=== PATIENT | female | born 1985 | race Caucasian/White ===

== ENCOUNTER 2018-07-06 17:09 | Observation (INO) ==
[2018-07-06] MEDS ORDERED: VANCOMYCIN HCL 1 GM VIAL 1 G in D5W 250 ML IV 250 ML IV ONE (17:57)
[2018-07-06] MEDS ORDERED: TORADOL 60 MG VIAL IVP ONE (17:57)
--- NOTE | 2018-07-06 17:59 | DR.BITE ---
HPI Time Seen Time Seen by Provider: 07/06/18 17:55 PCP Primary Care Physician: ESME Complaint/Symptoms Chief Complaint:: PT. C/O ABSCESS TO LEFT LEG. PT. STATES ON ANKUR MORNING HER LEFT LEG WAS HURTING HER AND THEN IT STARTED BECOMING REDDENED AND PAINFUL. PT. STATES HER LEFT GROIN AND LEFT THIGH IS PAINFUL. Source History Provided: Patient Mode of Arrival Mode of Arrival: Wheelchair Timing Onset of Chief Complaint: 07/03/18 PMH PMH Past Medical History: Yes Past Medical History: Kidney Stones Past Medical History Comment: PANCREATITIS Past Surgical History: Yes Surgical History: and Cholecystectomy Family History History of Family Medical Conditions: Yes Family Medical History: [place] Social History Does patient currently use any type of tobacco product: Yes Have you used tobacco products in the last 12 months: Yes Type of Tobacco Use: Cigarettes Does any household member use tobacco: Yes Alcohol Use: Occasionally Do you use any recreational Drugs:: No Lives With: Alone Lives Where: Home infectious screening In the last 2 months have you had wt loss of >10#?: NO Have you had fever, night sweats or hemotysis?: No Have you traveled outside the country in the last 6 months?: No Isolation: Standard PE Vital Signs Vital Signs: Temp Pulse Resp BP Pulse Ox 07/06/18 17:16 98.1 F 106 H 20 114/79 100 12/25/17 05:58 113/67 ROR Labs Reviewed Result Diagrams: 07/06/18 17:54 07/06/18 17:54 Laboratory: 07/06/18 17:59 Leg - Left Gram Stain - Final WBC 5.6 X10^3/uL (3.6-10.0) 07/06/18 17:54 RBC 4.40 X10^6/uL (3.5-5.4) 07/06/18 17:54 Hgb 12.6 g/dL (12.0-16.0) 07/06/18 17:54 Hct 36.4 % (36.0-47.0) 07/06/18 17:54 MCV 82.9 fL (80.0-100.0) 07/06/18 17:54 MCH 28.6 pg (27.0-34.0) 07/06/18 17:54 MCHC 34.5 g/dL (33.0-35.0) 07/06/18 17:54 RDW 12.5 % (11.6-16.5) 07/06/18 17:54 Plt Count 231 X10^3/uL (150.0-450.0) 07/06/18 17:54 MPV 8.6 fL (7.4-11.0) 07/06/18 17:54 Neut % (Auto) 64.5 % (42.0-75.0) 07/06/18 17:54 Lymph % (Auto) 23.6 % (21.0-51.0) 07/06/18 17:54 [place] % (Auto) 7.6 % (0.0-13.0) 07/06/18 17:54 Eos % (Auto) 3.6 % (0.9-2.9) H 07/06/18 17:54 Baso % (Auto) 0.7 % (0.2-1.0) 07/06/18 17:54 Neut # (Auto) 3.6 x10^3/uL (2.2-4.8) 07/06/18 17:54 Lymph # (Auto) 1.3 X10^3/uL (1.3-2.9) 07/06/18 17:54 [place] # (Auto) 0.4 x10^3/uL (0.3-0.8) 07/06/18 17:54 Eos # (Auto) 0.2 x10^3/uL (0.0-0.2) 07/06/18 17:54 Baso # (Auto) 0.0 X10^3/uL (0.0-0.1) 07/06/18 17:54 Absolute Nucleated RBC 0.0 /100WBC 07/06/18 17:54 Sodium 136 mmol/L (136-145) 07/06/18 17:54 Corrected Sodium TNP 07/06/18 17:54 Potassium 3.9 mmol/L (3.5-5.1) 07/06/18 17:54 Chloride 100 mmol/L (98-107) 07/06/18 17:54 Carbon Dioxide 29.7 mmol/L (21-32) 07/06/18 17:54 BUN 7 mg/dL (7-18) 12/28/18 17:54 Creatinine 0.82 mg/dL (0.55-1.02) 07/06/18 17:54 Est GFR (MDRD) Af Amer > 60 (>60) 07/06/18 17:54 Est GFR (MDRD) Non-Af > 60 (>60) 07/06/18 17:54 Glucose 108 mg/dL (65-99) H 07/06/18 17:54 Lactic Acid 1.2 mmol/L (0.4-2.0) 07/06/18 17:45 Calcium 9.2 mg/dL (8.5-10.1) 07/06/18 17:54 Corrected Calcium TNP 07/06/18 17:54 Total Bilirubin 0.20 mg/dL (0.2-1.0) 07/06/18 17:54 AST 14 Units/L (15-37) L 07/06/18 17:54 ALT 25 Units/L (12-78) 07/06/18 17:54 Alkaline Phosphatase 55 Units/L (46-116) 07/06/18 17:54 C-Reactive Protein 104.70 mg/L (0-3.0) H 07/06/18 17:45 Total Protein 7.8 g/dL (6.4-8.2) 07/06/18 17:54 Albumin 3.4 g/dL (3.4-5.0) 07/06/18 17:54 Globulin 4.4 g/dL (2.5-4.5) 07/06/18 17:54 Albumin/Globulin Ratio 0.8 Ratio (1.1-2.1) L 07/06/18 17:54
[2018-07-06] MEDS ORDERED: TORADOL 30 MG VIAL ONE (18:10)
[2018-07-06] MEDS ORDERED: VANCOMYCIN HCL 1 GM VIAL ONE (18:10)
[2018-07-06 18:11] LABS: BASOPHILS % (AUTO) 0.7 % (0.2-1.0); EOSINOPHILS # (AUTO) 0.2 x10^3/uL (0.0-0.2); EOSINOPHILS % (AUTO) 3.6 % (0.9-2.9); HEMATOCRIT 36.4 % (36.0-47.0); HEMOGLOBIN 12.6 g/dL (12.0-16.0); LYMPHOCYTES # (AUTO) 1.3 X10^3/uL (1.3-2.9); LYMPHOCYTES % (AUTO) 23.6 % (21.0-51.0); MEAN CORPUSCULAR HEMOGLOBIN 28.6 pg (27.0-34.0); MEAN CORPUSCULAR HGB CONC 34.5 g/dL (33.0-35.0); MEAN CORPUSCULAR VOLUME 82.9 fL (80.0-100.0); MEAN PLATELET VOLUME 8.6 fL (7.4-11.0); MONOCYTES # (AUTO) 0.4 x10^3/uL (0.3-0.8); MONOCYTES % (AUTO) 7.6 % (0.0-13.0); NEUTROPHILS # (AUTO) 3.6 x10^3/uL (2.2-4.8); NEUTROPHILS % (AUTO) 64.5 % (42.0-75.0); PLATELET COUNT 231 X10^3/uL (150.0-450.0); RED CELL DISTRIBUTION WIDTH 12.5 % (11.6-16.5); WHITE BLOOD COUNT 5.6 X10^3/uL (3.6-10.0)
[2018-07-06] MEDS ORDERED: NS 250 ML IV 250 ML IV ONE (18:11)
[2018-07-06 18:26] LABS: ALANINE AMINOTRANSFERASE 25 Units/L (12-78); ALBUMIN 3.4 g/dL (3.4-5.0); ALKALINE PHOSPHATASE 55 Units/L (46-116); ASPARTATE AMINO TRANSFERASE 14 Units/L (15-37); BLOOD UREA NITROGEN 7 mg/dL (7-18); CALCIUM 9.2 mg/dL (8.5-10.1); CARBON DIOXIDE 29.7 mmol/L (21-32); CHLORIDE 100 mmol/L (98-107); CREATININE 0.82 mg/dL (0.55-1.02); SODIUM 136 mmol/L (136-145); TOTAL PROTEIN 7.8 g/dL (6.4-8.2); eGFR NON BLACK RACES > 60 (>60)
[2018-07-06 18:34] LABS: LACTIC ACID 1.2 mmol/L (0.4-2.0)
--- NOTE | 2018-07-06 18:41 | RAD ---
KNEE RADIOGRAPHS CLINICAL HISTORY: 32-year-old female with cellulitis of the left knee and draining wound. COMPARISON: None. FINDINGS: Frontal lateral views of the left knee demonstrate no acute fracture or malalignment. There is no suprapatellar joint effusion. Significant soft tissue edema about the anterolateral knee from the inferior thigh to the upper lower extremity. The medial and lateral joint spaces are maintained. The mineralization is normal. There is no aggressive bone lesion or abnormal periosteal reaction. There is no soft tissue calcification or gas. IMPRESSION: 1. No radiographic evidence for aggressive osseous lesion, acute fracture or osseous abnormality of the left knee. 2. Significant soft tissue edema about the anterolateral aspect of the knee. Reported By:
[2018-07-06] MEDS: NS 1000 ML 1,000 ML IV SCH (18:56)
[2018-07-06] MEDS ORDERED: PHENERGAN TAB 25 MG PO PRN (20:36)
[2018-07-06] MEDS ORDERED: MOTRIN TAB 600 MG PO PRN (20:36)
[2018-07-06] MEDS ORDERED: TORADOL 30 MG VIAL IVP PRN (20:42)
[2018-07-06 20:45] LABS: BILIRUBIN,URINE NEGATIVE (NEGATIVE); BLOOD/HEMOGLOBIN,URINE 2+ (NEGATIVE); GLUCOSE, URINE NEGATIVE (NEGATIVE); KETONES,URINE NEGATIVE (NEGATIVE); LEUKOCYTE ESTERASE ,URINE 1+ (NEGATIVE); NITRITES,URINE NEGATIVE (NEGATIVE); PH,URINE 6.5 (5.0 - 8.0); PROTEIN,URINE 1+ (NEGATIVE); UROBILINOGEN,URINE NORMAL (NORMAL)
[2018-07-06 20:46] LABS: APPEARANCE,URINE CLOUDY (CLEAR); COLOR,URINE YELLOW (YELLOW)
[2018-07-06 20:53] LABS: BACTERIA,URINE 1+ /HPF (NEGATIVE); MUCUS,URINE MODERATE /HPF (NEGATIVE); SQUAMOUS EPITHELIAL CELL,UR MANY /HPF (NEGATIVE)
[2018-07-06] MEDS ORDERED: PHARMACY CONSULT - VANCOMYCIN XX SCH (21:00)
[2018-07-06] MEDS ORDERED: PATIENT'S HOME MEDICATION (Oxycodone [Oxycodone] 30 MG) PO SCH (21:04)
[2018-07-06] MEDS: NICOTINE PATCH TD SCH (21:31)
[2018-07-06] MEDS: ROXICODONE TAB 15 MG PO SCH (21:31)
[2018-07-06] MEDS: KLONOPIN TAB 1 MG PO PRN (21:32)
[2018-07-06 21:53] VITALS: BMI 22.4
[2018-07-07] MEDS: NS 1000 ML 1,000 ML IV SCH ×3 (06:11→17:47)
[2018-07-07 08:34] LABS: BASOPHILS % (AUTO) 0.6 % (0.2-1.0); EOSINOPHILS # (AUTO) 0.2 x10^3/uL (0.0-0.2); EOSINOPHILS % (AUTO) 4.5 % (0.9-2.9); HEMATOCRIT 35.7 % (36.0-47.0); HEMOGLOBIN 12.2 g/dL (12.0-16.0); LYMPHOCYTES # (AUTO) 1.2 X10^3/uL (1.3-2.9); LYMPHOCYTES % (AUTO) 30.1 % (21.0-51.0); MEAN CORPUSCULAR HEMOGLOBIN 28.5 pg (27.0-34.0); MEAN CORPUSCULAR VOLUME 83.6 fL (80.0-100.0); MEAN PLATELET VOLUME 8.6 fL (7.4-11.0); MONOCYTES # (AUTO) 0.4 x10^3/uL (0.3-0.8); MONOCYTES % (AUTO) 8.8 % (0.0-13.0); NEUTROPHILS # (AUTO) 2.3 x10^3/uL (2.2-4.8); PLATELET COUNT 212 X10^3/uL (150.0-450.0); RED BLOOD COUNT 4.27 X10^6/uL (3.5-5.4); RED CELL DISTRIBUTION WIDTH 12.6 % (11.6-16.5); WHITE BLOOD COUNT 4.1 X10^3/uL (3.6-10.0)
[2018-07-07 08:42] LABS: ALANINE AMINOTRANSFERASE 22 Units/L (12-78); ALBUMIN 2.7 g/dL (3.4-5.0); ALKALINE PHOSPHATASE 48 Units/L (46-116); ASPARTATE AMINO TRANSFERASE 16 Units/L (15-37); BLOOD UREA NITROGEN 6 mg/dL (7-18); CALCIUM 8.1 mg/dL (8.5-10.1); CARBON DIOXIDE 27.2 mmol/L (21-32); CHLORIDE 103 mmol/L (98-107); COR CA(FOR HYPOALB) 9.1 mg/dL (8.5-10.1); CREATININE 0.71 mg/dL (0.55-1.02); SODIUM 138 mmol/L (136-145); TOTAL PROTEIN 6.5 g/dL (6.4-8.2); eGFR NON BLACK RACES > 60 (>60)
[2018-07-07] MEDS: VANCOMYCIN HCL 1 GM VIAL 1 G in D5W 250 ML IV 250 ML IV SCH ×2 (09:22→21:05)
[2018-07-07] MEDS: ROXICODONE TAB 15 MG PO SCH ×4 (09:23→21:07)
[2018-07-07] MEDS: NICOTINE PATCH TD SCH (09:23)
[2018-07-07] MEDS: KLONOPIN TAB 1 MG PO PRN ×2 (09:33→21:07)
--- NOTE | 2018-07-07 12:37 | DR.H&P ---
H&P - History & Physical for Day of: H&P Date: 07/06/18 - Chief Complaint Chief Complaint: LEFT KNEE PAIN, ABSCESS - History of Present Illness History of Present Illness: 32 WF ER ADMISSION AFTER PRESENTING WITH CO LEFT KNEE PAIN AND OPEN WOUND DRAINING THICK YELLOW D/C. PT DENIES ANY INJURY. STATES ONSET OF ABSCESS 2 DAYS AGO. PT STARTED ON IV VANCOMYCIN IN ER. - Past Medical History Past Medical History: Kidney Stones - Past Surgical History Surgical History: , Cholecystectomy, Lithotripsy - Family History Family Medical History: [place] - Social History Does patient currently use any type of tobacco product: Yes Have you used tobacco products in the last 12 months: Yes Type of Tobacco Use: VAPE Does any household member use tobacco: Yes Alcohol Use: None Drug Use: None - Medications Home Medications: No Known Drug Allergies Allergy (Verified 07/06/18 17:21) CONTINUE taking the following medications clonazepam 2 mg PO BID PRN 07/06/18 [History] oxycodone 30 mg PO QID 07/06/18 [History] - Review of Systems Constitutional: No Symptoms Reported Eyes: No Symptoms Reported ENT: No Symptoms Reported Respiratory: No Symptoms Reported Cardiovascular: No Symptoms Reported Gastrointestinal: No Symptoms Reported Genitourinary: No Symptoms Reported Musculoskeletal: Leg Pain (LEFT KNEE ) Skin: Wound Neurological: No Symptoms Reported - Physical Exam Vital Signs: Temperature 97.8 F Pulse Rate [Left Brachial] 85 Pulse Rate 106 Respiratory Rate 18 Blood Pressure [Left Arm] 102/67 Blood Pressure 114/79 O2 Sat by Pulse Oximetry 98 Oriented: Normal Eyes: Normal Ear: Normal Nose: Normal Throat: Normal Respiratory: Clear Throughout Cardiovascular: Normal : Normal Auscultation: Bowel Sounds: Normal Palpation: Normal Tenderness: Normal Skin: Red, Tender, Wound Musculoskeletal: Left, Knee, Swelling, Tender Psychiatric: Anxiety Affect: Anxious Speech Pattern: Clear, Appropriate - Assessment/Plan (1) Cellulitis of left knee Status: Acute Plan: ADMIT, IV VANCOMYCIN, PAIN CONTROL. GENTLE IV HYDRATION, WOUND AND BLOOD CULTURE COLLECTED. XRAY LEFT KNEE, SURGICAL CONSULT (2) Abscess of knee, left Status: Acute - Allergies Allergies/Adverse Reactions: Allergies Allergy/AdvReac Type Severity Reaction Status Date / Time No Known Drug Allergies Allergy Verified 07/06/18 17:21
[2018-07-08] MEDS: NS 1000 ML 1,000 ML IV SCH (03:47)
[2018-07-08 04:52] VITALS: BP 105/76
[2018-07-08 07:43] LABS: CREATININE 0.71 mg/dL (0.55-1.02)
[2018-07-08] MEDS ORDERED: PHARMACY COMMENT IV NR (08:30)
[2018-07-08] MEDS: VANCOMYCIN HCL 1 GM VIAL 1 G in D5W 250 ML IV 250 ML IV SCH (08:33)
[2018-07-08] MEDS: NICOTINE PATCH TD SCH (08:35)
== END 2018-07-08 09:03 | disposition left against medical advice (07) ==
LOC: MED/SURG 17:16 → ER 17:16 → MED/SURG 20:59
PROVIDERS: ADMIT Internal Medicine; ATTEND Internal Medicine
DX: F19.90 Other psychoactive substance use, unspecified, uncomplicated; F15.90 Other stimulant use, unspecified, uncomplicated; F11.90 Opioid use, unspecified, uncomplicated; R79.82 Elevated C-reactive protein (CRP); B95.62 Methicillin resistant Staphylococcus aureus infection as the cause of diseases classified elsewhere; R60.0 Localized edema; L03.116 Cellulitis of left lower limb; L02.416 Cutaneous abscess of left lower limb
CPT/HCPCS: 36415; 73560; 80053; 80202; 80307; 81001; 82565; 83605; 85025; 86140; 87040; 87070; 87075; 87077; 87186; 87205; 96365; 96367; 96374; 96375; 99218; 99282; 99284; A4222; G0378; G0434; J1885; J3370; J7030; J7050; J7060